=== PATIENT | male | born 1955 | race African-American/Black ===

== ENCOUNTER 2022-06-19 16:21 | Emergency (ER) | payer BC ==
[2022-06-19] MEDS ORDERED: diphenhydrAMINE 50 MG/ML VIAL ONE (16:39)
[2022-06-19] MEDS ORDERED: methylPREDNISolone Sod Succ/PF 125 MG/2 ML VIAL ONE (16:39)
[2022-06-19] MEDS ORDERED: Sodium Chloride 0.9% 1,000 ML ONE (16:39)
[2022-06-19 17:01] LABS: #Basophils 0.1 thou/uL (0.0-0.2); #Lymphocytes 2.3 thou/uL (1.20-3.40); #Monocytes 0.7 thou/uL (0.11-0.59); #Neutrophils 3.5 thou/uL (1.40-6.50); %Basophils 1.4 % (0.0-1.0); %Eosinophils 0.6 % (0.0-10.0); %Lymphocytes 34.6 % (21.0-51.0); %Monocytes 10.8 % (0.0-10.0); %Neutrophils 52.6 % (42.0-75.0); Hemoglobin 15.2 g/dL (14.0-18.0); Mean Corpuscular HGB CONC 30.7 g/dL (32.0-36.0); Mean Corpuscular Hemoglobin 28.8 pg (27.0-31.0); Mean Platelet Volume 6.3 fL (7.4-10.4); Platelet Count 286 thou/uL (130-400); RBC Distribution Width 12.8 % (11.5-14.5); Red Blood Cell (RBC) Count 5.26 mill/uL (4.70-6.10); White Blood Cell (WBC) Count 6.7 thou/uL (4.8-10.8)
[2022-06-19] MEDS ORDERED: Tranexamic Acid 1,000 MG/10 ML VIAL ONE (17:11)
[2022-06-19] MEDS ORDERED: Sodium Chloride 0.9% 100 ML ONE (17:11)
[2022-06-19 17:13] LABS: ALT (SGPT) 17 U/L (8-55); AST (SGOT) 27 U/L (5-34); Albumin 4.4 g/dL (3.4-4.8); Alkaline Phosphatase 60 U/L (40-110); Anion Gap 17 mmol/L (10-20); BUN (Urea Nitrogen) 14 mg/dL (8.4-25.7); Bilirubin, Total 0.6 mg/dL (0.2-1.2); CK (CPK) 223 U/L (30-200); Calc. Creatinine Clearance 0 mL/min (70-130); Calcium 10.6 mg/dL (7.8-10.44); Carbon Dioxide 26 mmol/L (23-31); Chloride 104 mmol/L (98-107); Estimated GFR 98; Globulin 2.9 g/dL (2.4-3.5); Glucose 95 mg/dL (80-115); Potassium 4.7 mmol/L (3.5-5.1); Protein, Total 7.3 g/dL (5.8-8.1); Sodium 142 mmol/L (136-145)
[2022-06-19 17:53] LABS: SARS-CoV-2 NAA Rapid Test Not Detected (NotDetected)
[2022-06-19] MEDS ORDERED: Dextrose 5 %-0.45 % NaCl 1,000 ML ONE (20:49)
[2022-06-20] MEDS ORDERED: diphenhydrAMINE 50 MG/ML VIAL ONE (00:36)
[2022-06-20] MEDS ORDERED: Ondansetron PF 4 MG/2 ML Vial ONE (01:28)
[2022-06-20] MEDS ORDERED: Dextrose 5 %-0.45 % NaCl 1,000 ML ONE (04:16)
== END 2022-06-20 07:00 | disposition home or self-care (01) ==
LOC: NAV ERS 16:21
DX: T78.3XXA Angioneurotic edema, initial encounter (principal); I10 Essential (primary) hypertension; E78.5 Hyperlipidemia, unspecified; Z20.822 Contact with and (suspected) exposure to COVID-19; F17.210 Nicotine dependence, cigarettes, uncomplicated; Z79.899 Other long term (current) drug therapy
CPT/HCPCS: 71045; 80053; 82550; 83880; 84484; 85025; 93005; 96361; 96365; 96366; 96375; J1200; J2405; J2930; J7042; J7050; U0002

== ENCOUNTER 2023-02-20 17:02 | Emergency (ER) | payer OTHER ==
[2023-02-20] MEDS ORDERED: traMADol HCl 50 MG TAB ONE (17:20)
[2023-02-20] MEDS ORDERED: tiZANidine HCl 4 MG TAB PO SCH (17:45)
== END 2023-02-20 18:48 | disposition home or self-care (01) ==
LOC: NAV ERS 17:02
DX: S39.012A Strain of muscle, fascia and tendon of lower back, initial encounter (principal); S00.03XA Contusion of scalp, initial encounter; E78.00 Pure hypercholesterolemia, unspecified; I10 Essential (primary) hypertension; F17.210 Nicotine dependence, cigarettes, uncomplicated; V89.2XXA Person injured in unspecified motor-vehicle accident, traffic, initial encounter
CPT/HCPCS: 70450; 72131

== ENCOUNTER 2023-09-16 04:20 | Emergency (ER) | payer MEDICARE ==
[2023-09-16] MEDS ORDERED: Ibuprofen 200 MG TAB ONE (04:48)
== END 2023-09-16 05:03 | disposition home or self-care (01) ==
LOC: NAV ERS 04:20
DX: G56.02 Carpal tunnel syndrome, left upper limb (principal); E78.00 Pure hypercholesterolemia, unspecified; I10 Essential (primary) hypertension; F17.210 Nicotine dependence, cigarettes, uncomplicated; Z79.899 Other long term (current) drug therapy
CPT/HCPCS: 99283

== ENCOUNTER 2025-07-11 11:04 | Emergency (ER) | payer MEDICARE | END 2025-07-11 11:55 | disposition home or self-care (01) | LOC: NAV ERS 11:04 | DX: M54.32 Sciatica, left side (principal); E78.00 Pure hypercholesterolemia, unspecified; I10 Essential (primary) hypertension; F17.210 Nicotine dependence, cigarettes, uncomplicated; Z79.899 Other long term (current) drug therapy | CPT/HCPCS: 99283 ==

== ENCOUNTER 2025-08-10 17:37 | Emergency (ER) | payer MEDICARE ==
[2025-08-10] MEDS ORDERED: Ketorolac Tromethamine 30 MG (1 mL) VIAL ONE (18:18)
== END 2025-08-10 18:29 | disposition home or self-care (01) ==
LOC: NAV ERS 17:37
DX: M54.50 Low back pain, unspecified (principal); E78.00 Pure hypercholesterolemia, unspecified; I10 Essential (primary) hypertension; F17.210 Nicotine dependence, cigarettes, uncomplicated; Z79.899 Other long term (current) drug therapy
CPT/HCPCS: 96372; 99283; J1885; J2919